=== PATIENT | male | born 1990 | race African-American/Black ===

== ENCOUNTER 2020-08-30 13:52 | Emergency (ER) | payer OTHER ==
[2020-08-30 13:59] VITALS: BP 150/77; PULSE 75; TEMP 98; BMI 37.2
[2020-08-30] MEDS ORDERED: LIDOCAINE 5% TOPICAL PATCH TP ONE (14:48)
[2020-08-30] MEDS ORDERED: LIDOCAINE PATCH REMOVAL MC SCH (22:00)
== END 2020-08-30 15:18 | disposition home or self-care (01) ==
LOC: JERFT 13:52
DX: M25.511 Pain in right shoulder (principal)
CPT/HCPCS: 73030-TC-RT-FY; 99283-25

== ENCOUNTER 2022-05-12 19:15 | Emergency (ER) | payer OTHER ==
[2022-05-12 19:48] VITALS: BP 145/88; PULSE 89; RESP 19; TEMP 98.6; BMI 39.8
== END 2022-05-13 03:14 | disposition home or self-care (01) ==
LOC: JERFT 19:15 → JER 19:15
DX: S07.0XXA Crushing injury of face, initial encounter (principal); W20.8XXA Other cause of strike by thrown, projected or falling object, initial encounter
CPT/HCPCS: 99285-25; C9803-CS; U0003; U0005

== ENCOUNTER 2023-12-21 06:13 | Emergency (ER) | payer OTHER ==
[2023-12-21 06:21] VITALS: BP 149/85; PULSE 58; RESP 18; TEMP 98.1; BMI 40.8
[2023-12-21] MEDS ORDERED: DIPHTH,PERTUSS(ACELL),TET 0.5 ML DISP.SYRIN IM ONE (08:03)
[2023-12-21] MEDS: DIPHTH,PERTUSS(ACELL),TET 0.5 ML DISP.SYRIN IM ONE (08:03)
== END 2023-12-21 08:19 | disposition home or self-care (01) ==
LOC: JER 06:13 → JERFT 06:13
PROC: 0XQNXZZ Repair Right Index Finger, External Approach (ICD-10-PCS; principal; 2023-12-21)
PROC: 3E0234Z Introduction of Serum, Toxoid and Vaccine into Muscle, Percutaneous Approach (ICD-10-PCS; 2023-12-21)
DX: S61.210A Laceration without foreign body of right index finger without damage to nail, initial encounter (principal); W26.8XXA Contact with other sharp object(s), not elsewhere classified, initial encounter; Y99.0 Civilian activity done for income or pay
CPT/HCPCS: 90715; 99284-25

== ENCOUNTER 2023-12-28 16:23 | Emergency (ER) | payer OTHER ==
[2023-12-28 17:03] VITALS: BP 106/58; PULSE 110; RESP 16; TEMP 98.3; BMI 41.5
== END 2023-12-28 18:02 | disposition home or self-care (01) ==
LOC: JERFT 16:23 → JER 16:23 → JERFT 18:02
DX: Z48.02 Encounter for removal of sutures (principal)
CPT/HCPCS: 99281-25